=== PATIENT | male | born 1970 | race Caucasian/White ===

== ENCOUNTER → 2025-08-25 | Outpatient (CLI) | payer MEDICAID, SELFPAY ==
--- NOTE | 2025-08-25 14:45 | XR_ITS ---
Examination: MRI lumbar spine without contrast Date and time of exam: August 25, 2025, 1601 hrs. Indications: Low back pain 5 years worse the last 2 years radiating to the right hip Technique: Multiple MRI axial and sagittal sections lumbar spine. Sagittal T2-weighted images, TR 3500, TE 118 T1 weighted transverse sections, TR 688 T8.5, T2-weighted sagittal sections T1 weighted sagittal sections TR 621, TE 30 T2 axial sections, TR 4, 190, TE 84. Findings: Adequate alignment lumbar vertebral bodies on the lateral view Mild to moderate disc narrowing L5-S1 Disc desiccation diffusely No spondylolisthesis L5-S1 6 mm central lumbar disc bulge displacing both right and left S1 nerve roots L4-L5 severe spinal stenosis, up to 10 mm left paracentral disc bulge severely indenting the ventral margin thecal sac, displacing both the right and left L5 nerve roots More cephalad levels are unremarkable Impression: L5-S1 6 mm central lumbar disc bulge displacing both right and left S1 nerve roots L4-L5 severe spinal stenosis, up to 10 mm left paraspinal disc bulge severely indenting the ventral margin thecal sac, displacing both the right and left L5 nerve roots
== END | disposition home or self-care (01) ==
PROVIDERS: PCP Physician Assistant; Referring Provider Physician Assistant; Visit Provider Physician Assistant
DX: M51.370 Other intervertebral disc degeneration, lumbosacral region with discogenic back pain only (principal); M51.360 Other intervertebral disc degeneration, lumbar region with discogenic back pain only; M48.061 Spinal stenosis, lumbar region without neurogenic claudication
CPT/HCPCS: 72148